=== PATIENT | male | born 1995 | race African-American/Black ===

== ENCOUNTER 2016-10-16 18:32 | Emergency (ER) | payer OTHER ==
[~2016-10-16] VITALS: Ht 167.6 cm; Wt 72.6 kg
[2016-10-16] MEDS ORDERED: PRED20TA PO (20:44)
[2016-10-16] MEDS ORDERED: VALI5TAB PO (20:44)
[2016-10-16] MEDS ORDERED: diazePAM 5 MG TAB PO ONE (20:45)
[2016-10-16 20:59] VITALS: BP 140/81
== END 2016-10-16 21:00 | disposition home or self-care (01) ==
LOC: M ED 20:22
DX: M54.5 Low back pain (principal)

== ENCOUNTER → 2018-08-26 | Outpatient (CLI) | payer OTHER ==
[~2018-08-26] MED LIST: CONRAY-43 43% 50ML VIAL (Q9960) As Ordered ONE; PRED20TA PO; PROHANCE 279.3MG/ML 5ML VIAL (A9576) As Ordered ONE; VALI5TAB PO
--- NOTE | 2018-08-26 12:43 | REP ---
MRI RIGHT SHOULDER WITHOUT AND WITH CONTRAST ARTHROGRAM: 08/26/2018. Clinical history: Right shoulder pain for more than a year. Worrisome for SLAP lesion or impingement clinically. Technique: Pre and post arthrogram contrast multiplanar multisequence imaging of the shoulder performed according to our standard protocol. An additional ABER sequence provided. Findings: No prior study. The AC joint shows very minimal hypertrophic change subtly indenting musculotendinous junction rotator cuff. There is no abnormal widening of the AC joint, elevation of the clavicle in relationship to the acromion nor marrow signal abnormality adjacent to that joint. I do not see a peripheral acromial spur. There is no significant subacromial or subdeltoid bursal fluid nor bursal surface fraying along the supraspinatus tendon. There is minimal intrasubstance signal in that tendon without a full-thickness tear, retraction of the tendon nor atrophy of the muscle belly. I do not see a glenohumeral joint effusion. The coracoclavicular and coracohumeral ligaments grossly intact. The subscapularis tendon and muscles grossly intact. The infraspinatus and teres minor tendons and muscles are grossly intact. Biceps tendon appears seated in its groove. After contrast administration, there is a definite SLAP tear along the superior labrum. This appears to extend from 10 to 2 o'clock. Otherwise, anterior and posterior labrum were unremarkable. There is a type 2 anterior capsular insertion on the glenoid. No Hill-Sachs deformity is seen. The biceps labral complex was intact. There is no filling defect. The ABER sequence confirms the SLAP tear. Impression: 1. SLAP tear of 10 to 2 o'clock position superior labrum without other labral injury. The biceps labral complex and interarticular biceps tendon intact. 2. The subscapularis, infraspinatus, teres minor, tendons and muscles intact. 3. Only minor intrasubstance signal changes in the supraspinatus tendon without a tear, retraction of the tendon or atrophy of the muscle belly. 4. Coracoclavicular and coracohumeral ligaments are intact. No bone bruise, fracture, Hill-Sachs deformity or other acute finding. Electronically Signed by Neil Romero MD 08/26/2018 09:18 P
--- NOTE | 2018-08-26 21:20 | REP ---
Procedure: Right shoulder arthrogram The procedure was performed under the direct supervision of Dr. Romero. History: Right shoulder pain The benefits and risks including but not limited to pain, infection, bleeding and anaphylaxis were explained to the patient and informed consent was obtained. Technique: The right glenohumeral joint space was localized using fluoroscopic guidance. The skin was prepped and draped in a sterile fashion. 1% lidocaine was used as a local anesthetic. Using fluoroscopic guidance a 22 gauge spinal needle was inserted and advanced into the joint. 0.5 ml of Conray 43 was injected to verify placement. 11 ml of a solution containing 20 ml of sterile saline and 0.15 ml of ProHance was injected into the joint. The needle was removed and the patient was taken to MRI for postprocedural imaging. The the patient tolerated the procedure well and there were no immediate complications. Less than 6 seconds of fluoro time was utilized for this procedure. Reviewed by MERVAT Rossi 08/26/2018 05:32 P Electronically Signed by Neil Romero MD 08/26/2018 09:11 P
== END ==
LOC: M RADPRO 06:46
PROVIDERS: ATTEND Physician Assistant
DX: M25.511 Pain in right shoulder (principal); M75.81 Other shoulder lesions, right shoulder
CPT/HCPCS: 23350; 73223; 77002; A9576; Q9960